=== PATIENT | male | born 1965 | race Caucasian/White ===

== ENCOUNTER → 2018-01-15 | Day surgery (SDC) | payer OTHER ==
[~2018-01-15] VITALS: Ht 182.9 cm; Wt 95.3 kg
--- NOTE | 2018-01-15 15:32 | Operative Report ---
Operative/Inv Procedure Report Surgery Date: 01/15/18 Name of Procedure: Right shoulder arthroscopy with limited debridement and subacromial decompression; open biceps tenodesis. Pre-Operative Diagnosis: Right shoulder impingement/bursitis, rotator cuff tendinosis, bicipital tendinosis. Post-Operative Diagnosis: Right shoulder impingement/bursitis, rotator cuff tendinosis, bicipital tendinosis. Estimated Blood Loss: scant Surgeon/Feed Mixer: Maurice GREWAL,Veda Don MD, Enedina Darby Anesthesia: general endotracheal tube, block Implants: Arthrex Proximal Biceps Tenodesis Button Urine Output: Not recorded Drains: None Specimens: None Tourniquet: N/A Complications: None Condition: Stable Operative Indication: Sukhwinder Boogie is a 52 year old right hand dominant male with over 1 year of right shoulder pain. He denies a specific injury or inciting event, however has had progressively worsening pain and difficulty with reaching and overhead activities. He has had several corticosteroid injections and participated in physical therapy with minimal relief. Imaging of the right shoulder was concerning for tendinosis of the supraspinatus and infraspinatus tendons, as well as irregularity of the posterior superior labrum. Patient's symptoms localized to the anterior shoulder, specifically the biceps tendon. After failure to find durable relief with conservative measures, as well as an exam consistent for impingement and bicipital tendinitis, the patient is opted to proceed with surgical intervention. Operative/Procedure Note Note: Mr. Boogie arrive at [facility] on 01/15/2018. He was met in the pre- operative area, where his operative extremity was marked and his medical history reviewed. A regional block was performed by the anesthesia service. Patient was then taken into the operating room placed supine on the operating table. SCDs were applied to bilateral lower extremities. A timeout procedure was performed which the patient, operative extremity, and planned procedure were verified. The patient was induced under general anesthesia, and IV cefazolin was administered for antibiotic prophylaxis. The patient was then repositioned in a modified beachchair. Care was taken to pad all bony prominences and secure the head in neutral position. The patient's examination under anesthesia showed full range of motion without adhesions or evidence of adhesive capsulitis. The left upper extremity was prepped and draped in the usual sterile fashion. It was supported by an articulating arm positioner. Following a surgical pause, a standard posterior portal was created using a #11 blade scalpel. The camera was introduced into the glenohumeral joint. There is no significant cartilage damage or wear noted in the glenohumeral joint. There was fraying of the superior labrum and synovitis of the biceps attachment. There was also some fraying of the superior posterior labrum noted as well. There were no loose bodies noted within the joint. There is no evidence of supraspinatus or infraspinatus tears from the articular side. There was some fraying noted of the subscapularis tendon at its insertion, however no full-thickness tears appreciated. The biceps tendon had some synovitis noted of the distal intra-articular portion, as well as increased subluxation with examination. The decision was made to proceed with open biceps tenodesis. The biceps tendon was tagged with a PDS suture and clipped at its insertion at the superior labrum. The labral attachment was debrided using a VAPR. The labral tissue as well as the frayed subscapularis tissue was carefully debrided using a shaver. The camera was taken into the subacromial space. There was significant inflamed bursal tissue appreciated in this region. Thorough debridement was performed using a combination of the VAPR as well as the shaver. The undersurface of the acromion was debrided and a small anterolateral spur was appreciated. This was removed using the shaver on the forward position; care was taken to remove minimal bone with the cutting block technique. Following thorough debridement of the subacromial space, the rotator cuff was evaluated and found to be in good condition. There was some synovitis noted however no full-thickness cuff tears and no areas of softening, tendinosis, or attenuation. At this time the insurance removed from the joint in any excess fluid was evacuated. Attention was then turned to the open biceps tenodesis portion of this procedure. The anterior shoulder was reprepped using ChloraPrep. An incision was then made over the anterior upper arm, just distal to the palpable pectoralis major tendon in the axilla. This was taken through skin and subcutaneous tissue until the pec muscle was identified. This was bluntly dissected down to the humerus and the pec tendon was elevated superior and lateral. A Hohmann retractor was placed along the medial aspect of the humerus to assist with medial retraction. The biceps tendon was identified in the bicipital groove and pulled anteriorly. The tagged PDS suture was identified and used to retract the tendon. A FiberWire whipstitch was placed approximately 2 cm proximal to the musculotendinous junction. This was placed on the Arthrex proximal biceps tenodesis button. A single unicortical drill hole was placed using 3.2 mm drill bit. The button was then dropped into the anterior cortex and tension. Unfortunately, the sutures broke and the button was no longer held the tendon along the anterior surface of the humerus. A second whipstitch was placed more distal, and the initial drill hole was redrilled for unicortical fixation. The tendon measured approximately 6 mm, and the anterior humerus was reamed with a 6 mm drill for a socket. A second Arthrex proximal biceps tenodesis button was passed bicortical and tension on the posterior cortex of the humerus. The tendon was pulled into the drill hole with good tension. The suture was passed through the tendon and tied for additional fixation. At the conclusion of the procedure the anterior incision was copiously irrigated with normal saline. The wound was closed in layers using 0 Vicryl, 2-0 Vicryl, and a running Prolene for skin. This was reinforced with Steri-Strips. The portal sites were closed using #3-0 nylon suture. The portal sites were dressed with sterile Xeroform, and all incisions were covered with sterile gauze, an ABD pad, and foam tape. The patient was placed in a sling and repositioned on the operating table. He was extubated and taken from the operating room to the postanesthesia care unit in stable condition.
== END ==
LOC: STS 03:28
DX: M75.21 Bicipital tendinitis, right shoulder (principal); M75.51 Bursitis of right shoulder; M25.511 Pain in right shoulder; E03.9 Hypothyroidism, unspecified; G47.33 Obstructive sleep apnea (adult) (pediatric)
CPT/HCPCS: C9290; J0131; J0171; J0690; J1885; J2250